=== PATIENT | male | born 1980 | race Caucasian/White ===

== ENCOUNTER 2024-01-14 19:51 | Outpatient (REF) | payer BC, SELFPAY ==
[2024-01-14 20:43] LABS: Calculated LDL 178 mg/dL (<100); Cholesterol 248 mg/dL (<200); Glucose 86 mg/dL (74-106); HDL Cholesterol 48 mg/dL (40-60); Triglyceride 112 mg/dL (<150)
== END 2024-01-14 19:52 | disposition home or self-care (01) ==
LOC: NCHCN 19:51
PROVIDERS: PCP Internal Medicine; Visit Provider Internal Medicine
DX: Z00.00 Encounter for general adult medical examination without abnormal findings (principal)
CPT/HCPCS: 80061; 82947

== ENCOUNTER 2024-08-10 09:47 | Emergency (ER) | payer BC, SELFPAY ==
[2024-08-10] VITALS (29 sets, daily range): BP systolic 108–178; BP diastolic 65–87; PULSE 44–67; RESP 9–21; TEMP 36.6–37; O2SAT 95–100
--- NOTE | 2024-08-10 10:03 | W.ED.GENAD ---
Discharge Plan Disposition Patient Disposition: Home Condition: Stable Discharge Details Clinical Impression: Right ureteral stone Primary Care Provider: Saravanan Melgar ED Provider: Dustin Gibbs Home Meds and New Rx's Prescriptions: New tamsulosin 0.4 mg capsule 0.4 mg PO DAILY Qty: 15 0RF ketorolac 10 mg tablet 10 mg PO QID 5 Days Qty: 20 0RF Rx Instructions: maximum total duration of 5 days from all oral, intranasal, or parenteral formulations Continued gabapentin 300 mg capsule 300 mg PO BID valacyclovir 1 gram tablet 1,000 mg PO TID PRN Excedrin Migraine 250-250-65 mg tablet 1 tab PO ONCE ibuprofen 600 MG tablet 600 mg PO TID Qty: 30 1RF Discharge Instructions Instructions: Ketorolac (Systemic), Tamsulosin, Kidney Stone Diet, Kidney Stone, Adult ED Additional Instructions: You were seen in the emergency department for your 3 mm right ureteral stone, this will likely pass with treatment and aggressive hydration. Please take 1000 mg of Tylenol every 6 hours consistently over the next 1 to 2 weeks, for the first 5 days-use the prescribed 10 mg ketorolac's taken 4 times per day about fpc between each dose of Tylenol. Once you run out of this medication, use 400 [address] in its place to alternate Tylenol and ibuprofen. Take the once a day tamsulosin it dilates your ureteral and urethral system to allow easier stone passage. Drink copious amounts of fluids and diuretics like cranberry juice. Please return to the emergency department for any severe increase in pain with urinary obstruction, developing fever despite treatment, nausea or weakness or any other emergent concerns. Referrals: Mt eLblanc MD [ [facility] STAFF PHYSICIAN, Urology] Saravanan Melgar [Primary Care Provider, Medicine] [facility] General Date/Time Provider Initiated Documentation: 08/10/24 10:03. [facility] Narrative: Documentation/History was written with the assistance of JULIETTE Johnson. The patient consented to its use. The patient is a 44-year-old male with a history of kidney stones who came in today by POV/ambulating with his because of severe pain on his right side that started this morning. He described the pain just very painful and as a 9 out of 10 for severity, and it radiates down his right side. He also mentioned having sweats, blood in his urine, and feeling nauseous and vomiting all the time. He took 400mg ibuprofen for the pain this morning. He has a history of migraines and cold sores, but no other health problems. He did not have any trouble getting his urine out this morning and has not experienced any chest pain or shortness of breath. Patient is not anticoagulated. Related Data Home Medications ?Medication ?Instructions ?Recorded ?Confirmed ibuprofen 600 mg tablet 600 mg PO TID #30 tabs 10/22/14 08/10/24 [id number]-[id number] 250 1 tab PO ONCE 06/26/21 08/10/24 mg-250 mg-65 mg tablet (Excedrin Migraine) valacyclovir 1 gram tablet 1,000 mg PO TID PRN 06/26/21 08/10/24 gabapentin 300 mg capsule 300 mg PO BID 07/22/24 08/10/24 ketorolac 10 mg tablet 10 mg PO QID 5 days #20 tabs 08/10/24 tamsulosin 0.4 mg capsule 0.4 mg PO DAILY #15 caps 08/10/24 Previous Rx's ?Medication ?Instructions ?Recorded ibuprofen 600 mg tablet 600 mg PO TID #30 tabs 10/22/14 ketorolac 10 mg tablet 10 mg PO QID 5 days #20 tabs 08/10/24 tamsulosin 0.4 mg capsule 0.4 mg PO DAILY #15 caps 08/10/24 Allergies Allergy/AdvReac Type Severity Reaction Status Date / Time No Known Allergies Allergy Unverified 08/10/24 09:57 General Stated Complaint: FlankPain TRUDY: 3 Exam Narrative Exam Narrative: GENERAL APPEARANCE: Well-nourished, toxic, awake and alert, atraumatic, moderate to severe acute distress. SKIN: Warm, pale, diaphoretic, intact, without rashes/lesions/ulcerations. HEAD: Normocephalic, atraumatic, normal hair distribution for gender/age. EYES: Normal conjunctiva, no exudates on lids/lashes. ENT: Nares patent, no circumoral cyanosis, no facial swelling NECK: Supple, trachea midline, painless cervical ROM. LUNGS/CHEST: Lungs CTA bilaterally- no rhonchi/rales/wheezes diffusely, labored respirations-likely due to pain/grimacing, normal A/P diameter, symmetrical expansion, no chest wall deformity HEART (CV/PV): Regular rate and rhythm without murmur, no peripheral edema, no JVD. ABDOMEN: Soft, non-distended, no guarding, RLQ tenderness, R CVA tenderness to percussion, no Rovsing's with LLQ palpation, negative Whipple's. MSK: Normal ROM, no swelling/deformity to bilateral UEs or LEs, moving all extremities without weakness, no cyanosis, spine midline without tenderness, normal curvature. NEURO: Mental Status AAOx4 - alert to person, place, time, events No facial droop, no forehead involvement. Motor: No focal weakness - strength 5/5 in bilateral UEs and LEs, proximal and distal, symmetric. Sensory: sensation intact to light touch globally. Gait NT. PSYCH: euthymic, cooperative, pleasant, appropriate speech Course Vital Signs Vital signs: Vital Signs Temperature 36.6 C 08/10/24 09:55 Pulse 50 L 08/10/24 09:55 Respiratory Rate 16 08/10/24 09:55 Blood Pressure 178/74 H 08/10/24 09:55 Pulse Oximetry 98 08/10/24 09:55 Temperature 36.6 C 08/10/24 09:55 Pulse 50 L 08/10/24 09:55 Respiratory Rate 16 08/10/24 09:55 Blood Pressure 178/74 H 08/10/24 09:55 Pulse Oximetry 98 08/10/24 09:55 Pain Level 8 08/10/24 10:00 Medical Decision Making This dictation utilizes [id number] dictation software and may contain unedited grammatical errors. The patient is a 44-year-old male with a history of kidney stones who came in today by POV/ambulating with his because of severe pain on his right side that started this morning. He described the pain just very painful and as a 9 out of 10 for severity, and it radiates down his right side. He also mentioned having sweats, blood in his urine, and feeling nauseous and vomiting all the time. He took 400mg ibuprofen for the pain this morning. He has a history of migraines and cold sores, but no other health problems. He did not have any trouble getting his urine out this morning and has not experienced any chest pain or shortness of breath. Patients' medical history: Urinary calculus, migraine headache, IBS, sciatica. Family and social history: Denies EtOH use of a severe nature, no IVDU or illicit substance use, eats a normal diet, exercises regularly. Pertinent exam findings / vital signs include right lower quadrant tenderness, right CVA tenderness to percussion, diaphoretic, appears in moderate to severe acute distress/pain benign cardiopulmonary exam, neuro intact, no Rovsing's, negative Whipple sign. Differential / pathologies of concern include UTI pyelonephritis, obstructive uropathy, infected kidney stone, sepsis. Diagnostic studies of: - CBC, CMP, UA, lactate, blood cx's, CT renal colic wo contrast. - CBC shows no acute abnormality - CMP shows no actionable abnormality - Lactate negative - UA shows hematuria and proteinuria, no infection-blood cultures pending - CT shows a 3 mm right ureteral stone Interventions of: - 1g IV APAP, 2L IVF NS, 0.4mg Tamsuolosin, 0.5mg IVP hydromorphone x2 doses - IVP Toradol 15mg @ 4-6 hrs after ibuprofen. - Rx for tamsulosin and toradol ED Course/Assessment/Plan: 44-year-old male presents with right flank pain and some blood in his urine with a history of renal stones in remote past, he took 1 dose of ibuprofen p.o. earlier this morning. His laboratory workup shows no concern for infection or infected kidney stone or sepsis. I counseled him on a 3 mm ureteral stone that will likely pass, prescribed him 5 days of Toradol as well as 15-day supply of tamsulosin, counseled on taking therapeutic dosing of Tylenol and pushing fluids as well, strict return criteria for any signs of infected kidney stone or urinary obstruction, recommend he follow-up with urology should the problem not resolve in the next 2 weeks. Findings not consistent with sepsis, infected kidney stone, severe hydronephrosis or severe urinary obstruction. Disposition of Right Ureteral Stone. Patient verbalized understanding of the plan and return to ED criteria and engaged in shared decision making. Medical Records Medical records reviewed: Yes I reviewed the patient's medical records. Imaging Data Radiologic Study: Attestation: I personally reviewed and interpreted this imaging study as follows: Imaging: CT Scan Radiologist's impression: EXAM: CT RENAL COLIC WO CLINICAL HISTORY: R flank pain. TECHNIQUE: Imaging Protocol: Axial computed tomography images with coronal and sagittal reformatted images were created and reviewed. COMPARISON: CT RENAL COLIC WO CONTRAST from 10/22/2014 FINDINGS: ABDOMEN: Lung Bases: Normal where visualized. Liver: Normal density. No measurable mass. Gallbladder and biliary tract: No radiodense calculus or biliary ductal dilation. Pancreas: Normal density, no abnormal calcifications or inflammatory process. Spleen: Normal. Kidneys: Normal size, contour and axis.There is a nonobstructing 3 mm stone in the lower pole of the left kidney. There is a 1.4 cm simple cyst on the left kidney. No follow-up is recommended. There is a 6 mm nonobstructing stone in the midpole of the right kidney. There is a 3 mm stone in the proximal right ureter causing mild hydronephrosis. Adrenal glands: No mass is seen. Lymph nodes: Within normal limits. Abdominal Aorta: Abdominal portion non-dilated. PELVIS: Bladder:Symmetric distention, no gross wall thickening. Bowel: No obstruction or bowel wall thickening. Appendix is unremarkable. Peritoneal cavity: No ascites, collection or mesenteric inflammatory response. No free air. Reproductive organs: Unremarkable as visualized. Bones: Within normal limits for the patient's age. Soft Tissues: Within normal limits. IMPRESSION: 1. 3 mm stone in the proximal right ureter causing mild hydronephrosis. 2. Bilateral nephrolithiasis. Lab Data Lab results reviewed: Yes I reviewed the patient's lab results. Labs: 08/10/24 10:54 Blood Blood Culture - Pending 08/10/24 10:31 Blood Blood Culture - Pending Laboratory Tests Range/Units 08/10/24 08/10/24 10:31 12:18 WBC (4.4-10.8) 10^3/uL 7.64 RBC (4.36-5.78) 10^6/uL 5.09 Hgb (13.5-17.5) g/dL 14.8 Hct (40.0-50.0) % 44.0 MCV (80-95) fL 86 MCH (27.0-33.0) pg 29.1 MCHC (32.0-36.0) % 33.6 RDW (11.8-14.1) % 12.1 Plt Count (130-400) 10^3/uL 290 MPV (8.0-11.0) fL 9.4 Immature Gran % % 0.9 Neutrophils % % 71.6 Lymphocytes % % 20.2 Monocytes % % 5.6 Eosinophils % % 1.2 Basophils % % 0.5 Nucleated RBC % (0.0-0.3) % 0.0 Absolute Neutrophils (1.2-6.7) 10^3/uL 5.47 Absolute Lymphocytes (1.2-3.4) 10^3/uL 1.54 Absolute Monocytes (0.1-0.8) 10^3/uL 0.43 Absolute Eosinophils (0.0-0.7) 10^3/uL 0.09 Absolute Basophils (0.0-0.2) 10^3/uL 0.04 VBG Lactate (<or=2.0) mmol/L 1.6 Sodium (136-145) mmol/L 139 Potassium (3.5-5.1) mmol/L 3.8 Chloride (98-107) mmol/L 103 Carbon Dioxide (21.0-32.0) mmol/L 28.3 Anion Gap (3-11) mmol/L 7.7 BUN (7-18) mg/dL 22 H Creatinine (0.70-1.30) mg/dL 1.2 Est GFR (CKD-EPI 2020) (mL/min/1.73m2) 76.95 Glucose (74-106) mg/dL 132 H Calcium (8.5-10.1) mg/dL 8.8 Total Bilirubin (0.2-1.0) mg/dL 0.3 AST (15-37) U/L 30 ALT (16-63) U/L 33 Alkaline Phosphatase (46-116) U/L 66 Total Protein (6.4-8.2) g/dL 7.7 Albumin (3.4-5.0) g/dL 3.9 Lipase (<78) U/L 39 Urine Color (Yellow) Nitza Urine Clarity (Clear) Cloudy Urine pH (5-8) 6.0 Ur Specific [place] (1.005-1.025) 1.025 Urine Protein (Neg-Trace) mg/dL 100 H Urine Ketones (Negative) mg/dL Trace H Urine Blood (Negative) Large H Urine Nitrite (Negative) Negative Urine Bilirubin (Negative) Negative Urine Urobilinogen (Up to 0.2) mg/dL 0.2 Ur Leukocyte Esterase (Negative) Negative Urine RBC (0-2) HPF >50 H Urine WBC (0-5) HPF 0-2 Ur Epithelial Cells (Negative) HPF Rare Urine Crystals (Negative) HPF Rare Calcium Oxalate Urine Bacteria (Negative) HPF Negative Urine Casts (Negative) LPF 0-2 Hyaline Urine Mucus (Negative) Negative Ur Culture Indicated? No Urine Glucose (Negative) mg/dL Negative PFSH All Active Problems (Updated 08/10/24 @ 13:15 by MICHAEL Salomon) Right ureteral stone (Acute) Migraine headache (Chronic) Urinary calculus (Acute) Herpes stomatitis (Acute) Patellar tendonitis of left knee (Acute) IBS (irritable bowel syndrome) (Chronic) Varus deformity of knee (Acute) Sciatica (Acute) Social History Smoking/Tobacco Use Status: Never Smoking risk assessment performed?: Yes Alcohol Intake: current Alcohol Intake frequency: a few times a month Substance use type: does not use Housing: house Do you feel safe at home: Yes Do you feel safe in your relationship?: Yes PAWSS Have you Been Recently Intoxicated or Drunk Within the Last 30 days?: No Have you Ever Experienced Previous Episodes of Alcohol Withdrawal?: No Have you ever Experienced Withdrawal Seizures?: No Have you ever Experienced Delirium Tremens(DT)s?: No Have you ever undergone Alcohol Rehabilitation Treatment (i.e, inpt ot outpatient treatment programs)?: No Have you ever Experienced Blackouts?: No Have you ever Combined Alcohol with other Downers within the last 90 days?: No Have you ever Combined Alcohol with any other Substance of Abuse during the last 90 days?: No Positive Blood Alcohol level on Presentation? [PCS.BAL]: No Evidence of Increased Autonomic Activity (i.e. HR>120, tremor, sweating, agitation, nausea)?: No Result: 0
[2024-08-10] MEDS: HYDROmorphone 2 MG/ML SYR 0.5 MG IVP ×2 (10:29→10:47)
[2024-08-10] MEDS: Normal Saline 1,000 ML 1000 ML IV ×2 (10:36→13:01)
[2024-08-10] MEDS: ACETAMINOPHEN 1,000 MG/100 ML BAG 400 MG IVPB (10:38)
[2024-08-10 10:39] LABS: Abs Immature Grans 0.07 10^3/uL (0.0-0.06); Absolute Basophil Count 0.04 10^3/uL (0.0-0.2); Absolute Eosinophil Count 0.09 10^3/uL (0.0-0.7); Absolute Lymphocyte Count 1.54 10^3/uL (1.2-3.4); Absolute Monocyte Count 0.43 10^3/uL (0.1-0.8); Absolute Neutrophil Count 5.47 10^3/uL (1.2-6.7); Basophils % 0.5 %; Eosinophils % 1.2 %; HGB 14.8 g/dL (13.5-17.5); Immature Grans % 0.9 %; Lymphocytes % 20.2 %; MCH 29.1 pg (27.0-33.0); MCHC 33.6 % (32.0-36.0); MCV 86 fL (80-95); MPV 9.4 fL (8.0-11.0); Monocytes % 5.6 %; Neutrophils % 71.6 %; Platelet Count 290 10^3/uL (130-400); RBC 5.09 10^6/uL (4.36-5.78); RDW 12.1 % (11.8-14.1); RDW-SD 38.4 fL; WBC 7.64 10^3/uL (4.4-10.8)
[2024-08-10] MEDS: Tamsulosin 0.4 MG CAPCR PO (10:39)
[2024-08-10 10:41] LABS: Lactate 1.6 mmol/L (<or=2.0)
[2024-08-10] MEDS: Ketorolac 15 MG/ML VIAL IVP (10:46)
[2024-08-10 11:03] LABS: ALT 33 U/L (16-63); AST 30 U/L (15-37); Albumin 3.9 g/dL (3.4-5.0); Alkaline Phosphatase 66 U/L (46-116); Anion Gap 7.7 mmol/L (3-11); BUN 22 mg/dL (7-18); Bilirubin, Total 0.3 mg/dL (0.2-1.0); CO2 28.3 mmol/L (21.0-32.0); CREATININE 1.2 mg/dL (0.70-1.30); Calcium 8.8 mg/dL (8.5-10.1); Chloride 103 mmol/L (98-107); Estimated GFR 76.95 (mL/min/1.73m2); Glucose 132 mg/dL (74-106); Lipase 39 U/L (<78); Potassium 3.8 mmol/L (3.5-5.1); Sodium 139 mmol/L (136-145); Total Protein 7.7 g/dL (6.4-8.2)
[2024-08-10 12:26] LABS: Bilirubin Negative (Negative); Blood Large (Negative); Clarity Cloudy (Clear); Glucose Negative (Negative); Ketones Trace mg/dL (Negative); Leukocyte Esterase Negative (Negative); Nitrite Negative (Negative); Specific Gravity 1.025 (1.005-1.025); Urobilinogen 0.2 mg/dL (Up to 0.2)
--- NOTE | 2024-08-10 12:40 | DI.CT_ITS ---
Exam(s) CT RENAL COLIC WO EXAM: CT RENAL COLIC WO CLINICAL HISTORY: R flank pain. TECHNIQUE: Imaging Protocol: Axial computed tomography images with coronal and sagittal reformatted images were created and reviewed. COMPARISON: CT RENAL COLIC WO CONTRAST from 10/22/2014 FINDINGS: ABDOMEN: Lung Bases: Normal where visualized. Liver: Normal density. No measurable mass. Gallbladder and biliary tract: No radiodense calculus or biliary ductal dilation. Pancreas: Normal density, no abnormal calcifications or inflammatory process. Spleen: Normal. Kidneys: Normal size, contour and axis.There is a nonobstructing 3 mm stone in the lower pole of the left kidney. There is a 1.4 cm simple cyst on the left kidney. No follow-up is recommended. There is a 6 mm nonobstructing stone in the midpole of the right kidney. There is a 3 mm stone in the proximal right ureter causing mild hydronephrosis. Adrenal glands: No mass is seen. Lymph nodes: Within normal limits. Abdominal Aorta: Abdominal portion non-dilated. PELVIS: Bladder:Symmetric distention, no gross wall thickening. Bowel: No obstruction or bowel wall thickening. Appendix is unremarkable. Peritoneal cavity: No ascites, collection or mesenteric inflammatory response. No free air. Reproductive organs: Unremarkable as visualized. Bones: Within normal limits for the patient's age. Soft Tissues: Within normal limits. IMPRESSION: 1. 3 mm stone in the proximal right ureter causing mild hydronephrosis. 2. Bilateral nephrolithiasis. RADIATION DOSE DELIVERED: 550.03mGy.cm Total DLP DATA REPOSITORY: All CT scans at this facility are submitted to the National Radiology Data Registry (NRDR) Dose Index Registry (DIR) with the [employer] (ACR). RADIATION OPTIMIZATION: All CT scans at this facility use at least one of these dose optimization techniques: automated exposure control; mA and/or kV adjustment per patient size (includes targeted exams where dose is matched to clinical indication); or iterative reconstruction.
[2024-08-10 12:42] LABS: Epithelial Cells Rare HPF (Negative); RBC >50 HPF (0-2); WBC 0-2 HPF (0-5)
[2024-08-10 12:43] LABS: Bacteria Negative HPF (Negative); C & S Indicated? No; Casts 0-2 Hyaline LPF (Negative); Crystals Rare Calcium Oxalate HPF (Negative); Mucus Negative (Negative)
== END 2024-08-10 13:50 | disposition home or self-care (01) ==
PROVIDERS: Emergency Provider Physician Assistant; PCP Internal Medicine
DX: N20.1 Calculus of ureter (principal); R10.31 Right lower quadrant pain
CPT/HCPCS: 99284 ×2; 96375; 36415; 80053; 83690; 87040; 96361; 96365; 96374; 74176; 81003; 81015; 83605; 85025; J0131; J1171; J1885

== ENCOUNTER 2025-01-04 14:37 | Emergency (ER) | payer BC, SELFPAY ==
[2025-01-04 14:45] VITALS: BP 129/84; PULSE 59; RESP 18; TEMP 36.9; O2SAT 97
--- NOTE | 2025-01-04 14:45 | DI.RAD_ITS ---
Exam(s) XR RIBS LT PA CHEST 3V CLINICAL HISTORY: L rib pain. COMPARISON: No exams were available for comparison TECHNIQUE:: PA view of the chest and four views of the right ribs were performed. FINDINGS: LUNGS:Clear. No pleural abnormality seen. HEART: Normal size. MEDIASTINUM: Normal. BONES: No displaced rib fracture is seen. No bony destructive lesion is seen. IMPRESSION: 1. Unremarkable radiographic appearance of the right ribs. 2. No acute pulmonary findings.
[2025-01-04] MEDS: Lidocaine 5% Patch 1 PATCH TP (16:12)
[2025-01-04] MEDS: Ibuprofen 600 MG TAB PO (16:13)
[2025-01-04 16:22] VITALS: BP 138/78; PULSE 72; RESP 18; TEMP 36.7; O2SAT 100
--- NOTE | 2025-01-04 21:30 | W.ED.GENAD ---
Discharge Plan Disposition Patient Disposition: Home Condition: Stable Discharge Details Clinical Impression: Chest wall contusion Primary Care Provider: Unknown,Unknown ED Provider: Ashley Portillo Home Meds and New Rx's Prescriptions: New lidocaine [Lidocan IV] 5 % adhesive patch,medicated 1 patch topical DAILY Qty: 15 0RF Rx Instructions: leave on most painful area for up to 12 hrs Continued gabapentin 300 mg capsule 300 mg PO BID valacyclovir 1 gram tablet 1,000 mg PO TID PRN Discharge Instructions Instructions: Rib Fracture or Bruised Rib ED Additional Instructions: take 12 inhalations and exhalations daily lidoderm patch, 12 hours/ 12 hours off motrin 600 mg every 8 hours with food tylenol 500 mg ever6 6 hours as needed for pain return earlier with worsening pain, fever, shortness of breath, or should any new concerns arise Stand Alone Forms: Portal Information, Work Release Discharge Data Discharge Date/Time-TO BE ENTERED AT DEPARTURE: 01/04/25 16:16 HPI General Date/Time Provider Initiated Documentation: 01/04/25 14:48. HPI Narrative: This 44-year-old male presents with a report of knee injury to ribs an hour prior to arrival at work. 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 Patient states he has pain with breathing and movement which is why he presents. He denies any additional injuries. Related Data Home Medications Medication Instructions Recorded Confirmed valacyclovir 1 gram tablet 1,000 mg PO TID PRN 06/26/21 01/04/25 gabapentin 300 mg capsule 300 mg PO BID 07/22/24 01/04/25 lidocaine 5 % topical patch 1 patch topical DAILY #15 ea 01/04/25 (Lidocan IV) Previous Rx's Medication Instructions Recorded lidocaine 5 % topical patch 1 patch topical DAILY #15 ea 01/04/25 (Lidocan IV) Allergies Allergy/AdvReac Type Severity Reaction Status Date / Time No Known Allergies Allergy Unverified 01/04/25 14:49 General Stated Complaint: Orthopedic TRUDY: 3 Exam Narrative Exam Narrative: Alert and oriented 44-year-old male in no acute distress without visible evidence of trauma reproducible tenderness on left lateral rib cage, no tenderness abdomen and pelvis no CVA tenderness lungs clear to auscultation, no flail chest Course Vital Signs Vital signs: Vital Signs Temperature 36.9 C 01/04/25 14:45 Pulse 59 L 01/04/25 14:45 Respiratory Rate 18 01/04/25 14:45 Blood Pressure 129/84 01/04/25 14:45 Pulse Oximetry 97 01/04/25 14:45 Temperature 36.7 C 01/04/25 16:22 Pulse 72 01/04/25 16:22 Respiratory Rate 18 01/04/25 16:22 Blood Pressure 138/78 01/04/25 16:22 Pulse Oximetry 100 01/04/25 16:22 Pain Level 0 01/04/25 16:22 Medical Decision Making Results: Chest x-ray per radiology interpretation my review does not show evidence of acute abnormality Assessment and plan: Patient was given a spirometer to prevent pneumonia for deep breathing exercises x 12 at home daily, he will take Motrin and Tylenol and Lidoderm patches were supplied. He was given a work note for tomorrow. He is made aware that he likely has a chest wall contusion but could have a nondisplaced rib fracture should he have worsening pain fever, or should any new concerns arise he is encouraged to return for assessment PFSH All Active Problems (Updated 01/04/25 @ 15:59 by MICHAEL Ruiz) Chest wall contusion (Acute) Migraine headache (Chronic) Urinary calculus (Acute) Herpes stomatitis (Acute) Patellar tendonitis of left knee (Acute) IBS (irritable bowel syndrome) (Chronic) Varus deformity of knee (Acute) Sciatica (Acute) Social History Smoking/Tobacco Use Status: Never Smoking risk assessment performed?: Yes Alcohol Intake: current Alcohol Intake frequency: a few times a month Substance use type: does not use Housing: house Do you feel safe at home: Yes Do you feel safe in your relationship?: Yes
== END 2025-01-04 16:16 | disposition home or self-care (01) ==
PROVIDERS: Emergency Provider Physician Assistant
DX: S20.212A Contusion of left front wall of thorax, initial encounter (principal); W22.8XXA Striking against or struck by other objects, initial encounter; Y99.0 Civilian activity done for income or pay
CPT/HCPCS: 99283 ×2; 71101